=== PATIENT | female | born 1995 | race Caucasian/White ===

== ENCOUNTER 2016-10-02 18:29 | Outpatient (CLI) | payer OTHER ==
[2016-10-02 19:00] VITALS: BP 111/70
== END 2016-10-02 20:55 | disposition home or self-care (01) ==
LOC: LDRP-OP 18:29 → 2WEST 18:30 → LDRP-OP 12-29 14:10
DX: O26.899 Other specified pregnancy related conditions, unspecified trimester (principal); Z3A.00 Weeks of gestation of pregnancy not specified
CPT/HCPCS: 59025; G0378

== ENCOUNTER 2016-11-19 22:20 | Inpatient (IN) | payer OTHER ==
[~2016-11-19] VITALS: Ht 152.4 cm; Wt 62.0 kg
[2016-11-19 22:32] VITALS: BP 120/83
[2016-11-19] MEDS ORDERED: LEXAPRO10 MG PO (22:35)
[2016-11-19 23:39] LABS: EOSINOPHIL (%) 0.6 % (0-5); EOSINOPHIL COUNT 0.1 K/uL (0-0.3); HEMATOCRIT 37.8 % (36.0-46.0); IMMATURE GRANULOCYTE (%) 0.6 % (0.0-0.7); IMMATURE GRANULOCYTE COUNT 0.1 K/uL; INSTRUMENT ABS NEUTROPHIL CT 6.7 K/uL; LYMPHOCYTE COUNT 2.6 K/uL (1.0-2.8); MCH 29.1 PG (29.0-34.0); MCHC 33.6 G/DL (30.0-36.0); MCV 86.5 FL (83-99); MEAN PLAT.VOLUME 11.3 uM^3 (9.5-12.4); MONOCYTE (%) 8.1 % (3-12); MONOCYTE COUNT 0.8 K/uL (0-0.8); NEUTROPHIL (%) 65.1 % (45-76); NEUTROPHIL COUNT 6.7 K/uL (1.8-6.4); PLATELET COUNT 156 K/uL (156-360); RBC DIS.WIDTH-CV 13.3 % (11.8-14.6); RBC DIS.WIDTH-SD 41.4 % (39-53); RED BLOOD COUNT 4.37 M/uL (3.80-5.20); WHITE BLOOD COUNT 10.3 K/uL (4.1-10.2)
[2016-11-19 23:50] VITALS: BP 125/82
[2016-11-20] VITALS (18 sets, daily range): BP systolic 108–135; BP diastolic 67–85
[2016-11-20] MEDS ORDERED: IBUPROFEN800 MG PO (07:21)
[2016-11-21 07:15] VITALS: BP 100/63
[2016-11-21 14:55] VITALS: BP 115/79
[2016-11-21 22:35] VITALS: BP 120/69
[2016-11-22 07:51] VITALS: BP 119/73
== END 2016-11-22 12:50 | disposition home or self-care (01) | DRG 775 ==
LOC: LDRP-OP 22:20 → 2WEST 22:21 → LDRP-OP 12-29 21:16
PROVIDERS: Nurse Practitioner
DX: O99.344 Other mental disorders complicating childbirth (principal); F33.9 Major depressive disorder, recurrent, unspecified; Z37.0 Single live birth; O70.1 Second degree perineal laceration during delivery; F41.9 Anxiety disorder, unspecified; M41.9 Scoliosis, unspecified; O77.0 Labor and delivery complicated by meconium in amniotic fluid; O76 Abnormality in fetal heart rate and rhythm complicating labor and delivery; O26.899 Other specified pregnancy related conditions, unspecified trimester; Z3A.38 38 weeks gestation of pregnancy
CPT/HCPCS: 85025; C1755; G0378; J2405; J3010; J7120